=== PATIENT | male | born 1950 | race Caucasian/White ===

== ENCOUNTER 2023-11-24 17:11 | Outpatient (REF) | payer OTHER, MEDICAID, SELFPAY | END 2023-11-24 17:12 | disposition home or self-care (01) | LOC: LBN 17:11 | PROVIDERS: PCP Internal Medicine; Visit Provider Nurse Practitioner | DX: L97.822 Non-pressure chronic ulcer of other part of left lower leg with fat layer exposed (principal); B37.2 Candidiasis of skin and nail; I87.2 Venous insufficiency (chronic) (peripheral) | CPT/HCPCS: 87070; 87205 ==